=== PATIENT | female | born 1995 | race Caucasian/White ===

== ENCOUNTER 2024-11-05 04:36 | Inpatient (IN) | payer SELFPAY, OTHER ==
[2024-11-05] VITALS (26 sets, daily range): BP systolic 91–110; BP diastolic 51–66; PULSE 67–87; RESP 15–18; TEMP 36.2–37; O2SAT 97–98; BMI 29.7
[2024-11-05 04:24] LABS: ROM Internal Control Test YES-OK TO RESULT pt. (Internal QC)
[2024-11-05 04:25] LABS: ROM Patient Test POSITIVE (Negative); Record Kit Lot#, ROM+ K3358
[2024-11-05 06:06] LABS: Hematocrit 33.7 % (37-47); Hemoglobin 11.3 g/dL (12.0-15.0); Immature Granulocytes Count 0.090 X10^3/uL (0.0-0.0); Mean Corp Hgb Conc 33.5 g/dL (32-36); Mean Corpuscular Volume 94.1 fL (81-99); Mean Platelet Vol. 10.1 fl (6.2-12.0); NRBC Flagged by Analyzer 0 % (0-5); Platelet Count 264 K/mm3 (150-450); RBC Distribution Width CV 15.1 % (11.6-14.6); RBC Distribution Width SD 52.4 fl (35.1-43.9); Red Blood Count 3.58 M/mm3 (4.2-5.4); White Blood Count 12.5 K/mm3 (4.4-11.0)
[2024-11-05 06:59] LABS: Syphilis Antibodies Nonreactive (Nonreactive)
--- NOTE | 2024-11-05 08:34 | PCM.HP.OB ---
HPI - General General Date of Admission: 11/05/24 Date of Service: 11/05/24 Chief Complaint: contractions HPI Narrative VANDANA ALDANA, is a 29 F who presents 3 para 2 who presents with a EDC of 11/22/2024 complaining of contractions. She had spontaneous rupture of membranes approximately 1 AM and a by 1:30 AM she was having contractions she arrived to labor and delivery and was found to be in early labor. Her contractions continued and became more regular and she progressively has been changing her cervix and determined to be in active labor. Obstetrical history is significant for 1 vaginal delivery followed by primary section for breech presentation. Patient desires vaginal delivery this . Patient denies any other significant past medical history. She denies any alcohol tobacco or drug use during the . Allergy to penicillin. Maternal Data Information Final MATTIE: 11/22/24 Gestational age: 37 4/7 [facility] Home Medications ?Medication ?Instructions ?Recorded ?Last Taken ?Type cyanocobalamin-liver extract tablet tab PO 11/05/24 11/02/24 History ferrous sulfate 325 mg (65 mg 325 mg PO QODAY 11/05/24 11/04/24 History iron) tablet (Feosol) omega-3 fatty acids PO pegnancy 11/05/24 11/04/24 History vit no.95-ferrous 1 tab PO DAILY 11/05/24 11/04/24 History fumarate 28 mg-folic acid 800 mcg tablet () Allergy/AdvReac Type Severity Reaction Status Date / Time amoxicillin Allergy Swelling Verified 11/05/24 03:53 diphenhydramine (From Allergy Swelling Verified 11/05/24 03:53 Benadryl) Penicillins Allergy Swelling Verified 11/05/24 03:53 pseudoephedrine (From Allergy Chest Verified 11/05/24 03:53 Sudafed) tightness Social History Smoking Status: Former smoker History Elective abortions Hx Para 2 Spontaneous abortions Hx # Term Pregnancies Ectopic pregnancies Hx # Pregnancies Multiple births # of living children ROS Constitutional Constitutional: Denies fatigue, fever(s) or malaise Eyes Eyes: Denies change in vision ENT HEENT: Denies dizziness or headache(s) Cardiovascular Cardiovascular: Denies chest pain, dyspnea or lightheadedness Respiratory/Chest Respiratory/Chest: Denies cough or dyspnea Gastrointestinal Gastrointestinal: Denies change in bowel habits Genitourinary Genitourinary: Denies burning urination or genital lesions Integumentary Integumentary: Denies rash Neurologic Neurologic: Denies confusion, dizziness, headache(s), numbness or weakness Vital Signs Vital Signs Vital Signs: 11/05/24 03:56 11/05/24 03:56 11/05/24 03:56 Temperature 97.4 F L Temperature Source Temporal Pulse Rate Respiratory Rate 16 Blood Pressure BP Systolic BP Diastolic Pulse Ox 11/05/24 03:58 11/05/24 03:58 11/05/24 05:57 Temperature Temperature Source Pulse Rate 74 Respiratory Rate Blood Pressure 110/61 104/65 BP Systolic 110 104 BP Diastolic 61 65 Pulse Ox 11/05/24 05:57 11/05/24 05:57 11/05/24 05:57 Temperature Temperature Source Temporal Pulse Rate 67 Respiratory Rate 16 Blood Pressure BP Systolic BP Diastolic Pulse Ox 11/05/24 05:57 11/05/24 07:14 11/05/24 07:14 Temperature 97.4 F L Temperature Source Temporal Pulse Rate Respiratory Rate 18 Blood Pressure BP Systolic BP Diastolic Pulse Ox 11/05/24 07:14 11/05/24 07:15 11/05/24 07:15 Temperature 97.5 F L Temperature Source Pulse Rate 79 Respiratory Rate Blood Pressure 109/65 BP Systolic 109 BP Diastolic 65 Pulse Ox 11/05/24 07:15 11/05/24 08:14 11/05/24 08:14 Temperature Temperature Source Pulse Rate 76 Respiratory Rate Blood Pressure 102/63 BP Systolic 102 BP Diastolic 63 Pulse Ox 97 11/05/24 08:14 11/05/24 08:14 11/05/24 08:14 Temperature 97.7 F L Temperature Source Temporal Pulse Rate Respiratory Rate 16 Blood Pressure BP Systolic BP Diastolic Pulse Ox Weight Weight: 71.305 kg Body Mass Index (BMI) 29.7 Physical Exam Const alert and no apparent distress General Appearance: cooperative HEENT normocephalic Resp normal respiratory effort Cardio regular rate GI soft to palpation GI Narrative: gravid, nontender, appropriate for gestational age Extremity no calf tenderness General Extremity: edema Skin no wounds Rashes: No rashes noted Psych activity/motor behavior normal Labs Labs Labs: Blood Type A NEGATIVE Antibody Screen POSITIVE Hct 33.7 % (37-47) L Hgb 11.3 g/dL (12.0-15.0) L Syphilis Total Ab Nonreactive (Nonreactive) Assessment & Plan (1) Previous delivery affecting : PLAN: Patient in spontaneous labor. Risk-benefit and alternatives to [place] at been discussed with the patient her questions were answered to her satisfaction she desires to proceed. She is in spontaneous labor. Will augment with Pitocin as needed. Encouraged epidural. May use routine pain control measures as needed and as indicated in labor. Will augment with Pitocin if needed. Estimated weight is less than 4500 g and pelvis clinically adequate to expect vaginal delivery. (2) 37 weeks gestation of : (3) Spontaneous onset of labor after 37 but before 39 completed weeks gestation with delivery by planned section:
[2024-11-05] MEDS: Oxytocin 15 Units/NS 250ml 15 UNITS/250 ML IV.SOLN 83 UNITS IV (11:09)
[2024-11-05] MEDS: 0.9% Saline Lock 10 ML Syringe IV (11:12)
--- NOTE | 2024-11-05 11:30 | OB.VAGDELI_ITS ---
Assessment & Plan (1) (spontaneous vaginal delivery): (2) Single live : (3) , delivered: Maternal Data Information Final MATTIE: 11/22/24 Gestational age: 37 4/7 Vaginal Delivery Maternal Presentation Maternal Presentation: Active Labor Vaginal Delivery Information Procedure Performed: Spontaneous Vaginal Delivery Surgeon/Practitioner: Rosetta Weinstein Date of Procedure: 11/05/24 Pre-Procedure Diagnosis: labor Post-Procedure Diagnosis: same Type of anesthesia: None Estimated Blood Loss: 200 Time of Delivery: 11:05 Findings Description of procedure: A vigorous female was delivered JAJA over an intact perineum there was no nuchal cord the remainder the infant was delivered with maternal pushing and gentle traction only in less than 15 seconds. The Pitocin infusion was initiated for active management of the third stage. The cord was clamped and cut after cord pulsations ceased. The infant was attended to by the waiting nursing staff. The placenta was delivered spontaneously and intact. The cervix and vagina were intact. Sponge and needle counts were correct. A vaginal sweep was completed by me. Procedure findings: Vigorous female infant normal placenta with three-vessel cord Presentation: JAJA Amniotic Membrane Rupture Type: Spontaneous Amniotic Fluid Description: Clear Placental Delivery Description: Spontaneous Placenta Disposition: [facility] Specimen collected: No Cord Vessel Description: 3 Vessels Cord Entanglement: None Infant A Gender: Female (1 minute): 8 (5 minute): 9 Delayed Cord Clamping: Yes Market Relationship Manager software design manager: No Post Vaginal Deli Medications given after delivery: IV Pitocin and IM Pitocin Episiotomy Description: None Laceration: None Complication Complications: No
[2024-11-05] MEDS: Rho(D) Immune Globulin 300 MCG (1500 Unit) Syringe IV (16:43)
[2024-11-05] MEDS: Benzocaine/Lanolin/Aloe Vera 85 GM Spray 1 SPRAY TOPICAL (22:10)
[2024-11-05] MEDS: SELF ADMINISTRATION OF MEDS 1 EACH NOTE (22:10)
[2024-11-06] VITALS (9 sets, daily range): BP systolic 90–105; BP diastolic 47–59; PULSE 59–78; RESP 14–16; TEMP 36.1–36.6; O2SAT 97–99
--- NOTE | 2024-11-06 08:41 | DS.PCM_ITS ---
Providers Date of Admission: 11/05/24 Primary Care Physician: Dr. Rolo Diaz MD Reason For Visit: VAGINAL Diagnosis Discharge Diagnosis (1) (spontaneous vaginal delivery): Status: Acute Code(s): O80 - Encounter for full-term uncomplicated delivery (2) Single live : Status: Acute Code(s): Z37.0 - Single live (3) , delivered: Status: Acute Code(s): O34.219 - Maternal care for unspecified type scar from previous delivery (4) Care and examination of lactating mother: Status: Acute Code(s): Z39.1 - Encounter for care and examination of lactating mother Medications at Discharge Home Medications cyanocobalamin-liver extract tablet tab PO 11/05/24 ferrous sulfate 325 mg (65 mg iron) tablet (Feosol) 325 mg PO QODAY 11/05/24 omega-3 fatty acids PO pegnancy 11/05/24 vit no.95-ferrous fumarate 28 mg-folic acid 800 mcg tablet () 1 tab PO DAILY 11/05/24 acetaminophen 500 mg tablet 1,000 mg (2 x 500 mg) PO Q6H PRN PRN Pain 1-10 Or Fever #0 tabs 11/06/24 Hospital Course Operations None Procedures None Summary of Care Provided Minutes Spent on Discharge: 15 Hospital Course: Patient had vaginal delivery. Hospital course was uneventful. Physical Exam Narrative Patient seen at bedside. Sitting in chair at bedside infant. Denies pain. Ambulating and voiding without difficulty. Lochia decreased. Desires discharge home today. Const alert and oriented x3 General Appearance: Negative for in distress HEENT normocephalic Eyes General Eye: normal appearance of both eyes Neck General: normal visual inspection Chest Chest: symmetrical chest wall rise Resp normal respiratory effort and normal air movement Effort and Inspection: symmetric chest movement; Negative for tachypneic Auscultation: clear to auscultation bilaterally Cardio regular rate and regular rhythm Peripheral Pulses: pulses 2+ throughout GI normal to inspection, nondistended, normoactive bowel sounds Narrative: Ice to perineum OB / External & Speculum: vaginal bleeding and other Lochia decreasing Uterus Palpation: uterus fundus firm (Below U) Extremity normal to inspection, full ROM and normal capillary refill Skin no rashes or lesions noted Neuro oriented x3, CN's II-XII intact bilaterally and gait normal Psych mental status grossly normal, thought process normal and activity/motor behavior normal Weight / BMI Weight Weight: 157 lb 3.2 oz Body Mass Index (BMI) 29.7 ABG / Lab / Microbiology Data 11/05/24 05:50 Laboratory: Laboratory Results - last 24 hr 11/05/24 14:45: Screen NEGATIVE, Baby's Blood Type B POSITIVE, Baby's STEPHANIE NEGATIVE Microbiology: Microbiology 11/05/24 05:35 Genital vaginal Group B Streptococcus (PCR) - Final D/C Instructions Discharge Activity: Return to Normal Activity, No Restrictions, May Drive, May Shower and May Take a Tub Bath (Warm water only. No bath salts, soaps, bubbles) May resume sexual activity in: 6-8 weeks Weight Bearing Status: Weight bearing as tolerated Call your doctor if you observe: Fever of 101 or Higher, Inability to urinate, Using more than 1 pad per hour, Shortness of breath, Dizziness, Chest pain, Calf discomfort and Uncontrolled pain DC O2, CPAP, BIPAP Needs Home O2 Discharge instructions: No Please Follow Up With: [facility] When: 2 weeks in office or virtual Meaningful Use Info Meaningful Use Meaningful Use Diagnoses (Choose all that apply): None applicable Discharge Plan Admission Admit Date/Time: 11/05/24 04:36 Primary Reason for Your Visit: Labor and Delivery Attending Provider: Rosetta Weinstein Primary Care Provider: Rolo Diaz Discharge Orders/Prescriptions Prescriptions: New acetaminophen 500 mg Tablet 1,000 mg PO Q6H PRN PRN (Reason: Pain 1-10 Or Fever) Qty: 0 0RF Continued PNV cmb#95-ferrous fumarate-FA [] 28 mg iron- 800 mcg tablet 1 tab PO DAILY omega-3 fatty acids [Fish Oil] PO cyanocobalamin-liver extract Tablet PO ferrous sulfate [Feosol] 325 mg (65 mg iron) tablet 325 mg PO QODAY Referrals / Follow Up: Rolo Diaz MD [Primary Care Provider] - Disposition Disposition (needs filled in before D/C Order can be placed): Home, Self Care
--- NOTE | 2024-11-11 14:32 | NURSING ---
Follow up phone call made, no answer, left voicemail.
== END 2024-11-06 17:05 | disposition home or self-care (01) | DRG 807 ==
LOC: WP 05:07
PROVIDERS: Advanced Practice Midwife; Admitting Provider Obstetrics & Gynecology; PCP Family Medicine; Referring Provider Obstetrics & Gynecology; Visit Provider Obstetrics & Gynecology
DX: O34.219 Maternal care for unspecified type scar from previous cesarean delivery (principal); Z37.0 Single live birth; O42.02 Full-term premature rupture of membranes, onset of labor within 24 hours of rupture; Z3A.37 37 weeks gestation of pregnancy; Z87.59 Personal history of other complications of pregnancy, childbirth and the puerperium; Z87.891 Personal history of nicotine dependence
CPT/HCPCS: 59025; 59050; 84112; 85025; 85461; 86780; 86850; 86870; 86900; 86901; 87081; 87653; 90384; 99221; A4216; G0378; J2790; J2791